=== PATIENT | female | born 1990 | race Caucasian/White ===

== ENCOUNTER 2017-02-02 13:21 | Emergency (ER) | payer BC, OTHER ==
[2017-02-02 14:45] LABS: HEMOGLOBIN 13.3 gm/dl (12.3-15.3); RED BLOOD COUNT 4.15 M/UL (4.00-5.10); WHITE BLOOD COUNT 8.4 K/UL (4.5-11.0)
[2017-02-02 15:25] LABS: BUN/CREATININE RATIO 14 (0-10)
[2017-05-20] MEDS ORDERED: COLACE 100MG C100 MG PO (14:19)
== END 2017-02-02 18:30 | disposition home or self-care (01) ==
LOC: ER1 13:21
PROVIDERS: Emergency Medicine
DX: O99.89 Other specified diseases and conditions complicating pregnancy, childbirth and the puerperium (principal); R51 Headache; O23.42 Unspecified infection of urinary tract in pregnancy, second trimester; Z3A.22 22 weeks gestation of pregnancy
CPT/HCPCS: 36415; 80053; 81001; 85025; 85610; 85730; 87086; 96374; 96376; 99284; J2270; J2550

== ENCOUNTER 2017-03-04 13:36 | Outpatient (CLI) | payer BC, OTHER ==
[2017-05-20] MEDS ORDERED: COLACE 100MG C100 MG PO (14:19)
== END 2017-03-04 16:21 | disposition home or self-care (01) ==
LOC: GENOP 13:36
DX: O21.9 Vomiting of pregnancy, unspecified (principal); R10.9 Unspecified abdominal pain; M54.9 Dorsalgia, unspecified; R19.7 Diarrhea, unspecified; Z3A.26 26 weeks gestation of pregnancy
CPT/HCPCS: 81001; G0463; J0780

== ENCOUNTER 2021-02-23 07:34 | Emergency (ER) | payer BC, OTHER ==
[~2021-02-23 07:34] MED LIST: AUGMENTIN 875-1 EACH PO; CEFUROXIME500 MG PO; COLACE 100MG C100 MG PO; IBUPROFEN600 MG PO; ZOFRAN4 MG PO
[2021-02-23 08:47] LABS: HEMOGLOBIN 12.5 gm/dl (12.3-15.3); RED BLOOD COUNT 4.15 M/UL (4.00-5.10); WHITE BLOOD COUNT 5.7 K/UL (4.5-11.0)
[2021-02-23 09:04] LABS: BUN/CREATININE RATIO 9 (0-10)
[2021-02-23] MEDS ORDERED: BENTYL 20MG TAB20 MG PO (10:43)
[2021-02-23] MEDS ORDERED: ZOFRAN4 MG PO (10:43)
== END 2021-02-23 11:00 | disposition home or self-care (01) ==
LOC: ER1 07:34
PROVIDERS: Physician Assistant Medical
DX: R10.9 Unspecified abdominal pain (principal); R11.2 Nausea with vomiting, unspecified; R19.7 Diarrhea, unspecified; Z88.8 Allergy status to other drugs, medicaments and biological substances
CPT/HCPCS: 36415; 80053; 81001; 83605; 83690; 84703; 85025; 85652; 86140; 96374; 99284; J2405; J7030; Q9967

== ENCOUNTER → 2021-09-14 | Outpatient (CLI) | payer OTHER ==
[~2021-09-14] MED LIST changes: +BENTYL 20MG TAB20 MG PO
== END ==
LOC: EXRD 10:05
DX: M25.552 Pain in left hip (principal); G89.29 Other chronic pain
CPT/HCPCS: 73522

== ENCOUNTER 2021-12-02 18:54 | Emergency (ER) | payer OTHER ==
[2021-12-02] MEDS ORDERED: HYDROCODON-ACE1 EAC4 PO (20:13)
== END 2021-12-02 20:30 | disposition home or self-care (01) ==
LOC: ER1 18:54
DX: S20.211A Contusion of right front wall of thorax, initial encounter (principal); S20.214A Contusion of middle front wall of thorax, initial encounter; V49.9XXA Car occupant (driver) (passenger) injured in unspecified traffic accident, initial encounter
CPT/HCPCS: 71111; 99283

== ENCOUNTER → 2022-05-12 | Outpatient (CLI) | payer BC ==
[~2022-05-12] MED LIST changes: +HYDROCODON-ACE1 EAC4 PO
== END ==
LOC: EMI 15:24
DX: M51.36 Other intervertebral disc degeneration, lumbar region (principal)
CPT/HCPCS: 72148